=== PATIENT | female | born 1985 | race Caucasian/White ===

== ENCOUNTER 2018-09-03 13:09 | Day surgery (SDC) | payer OTHER ==
[2018-09-03] MEDS ORDERED: LACTATED RINGER'S 1,000 ML IV (14:00)
[2018-09-03] MEDS ORDERED: BUPIVACAINE 0.5% (SDV) 30 ML INJ (14:21)
[2018-09-03] MEDS ORDERED: OXYCODONE/ACETAMINOPHEN (5/325) TAB PO ×2 (15:00)
[2018-09-03] MEDS ORDERED: hydrALAzine 20 MG INJ IV (15:00)
[2018-09-03] MEDS ORDERED: LABETALOL HCL 20MG INJ IV (15:00)
[2018-09-03] MEDS ORDERED: HYDROmorphONE 1 MG/5 ML IV SYRINGE IV ×3 (15:00)
[2018-09-03] MEDS ORDERED: ONDANSETRON 4 MG INJ IV (15:00)
[2018-09-03] MEDS ORDERED: KETAMINE (50 MG/ML) 10 ML VIAL (15:02)
[2018-09-03] MEDS ORDERED: PROPOFOL 20 ML (15:04)
[2018-09-03] MEDS ORDERED: FENTAnyl 50 MCG/ML VIAL (15:04)
[2018-09-03] MEDS ORDERED: LIDOCAINE 2% (SDV) 5 ML INJ (15:04)
[2018-09-03] MEDS ORDERED: ROPIVACAINE 0.5 % 30 ML VIAL (15:04)
[2018-09-03] MEDS ORDERED: MIDAZOLAM 1 MG/ML 2 ML INJ (15:04)
[2018-09-03] MEDS ORDERED: CEFAZOLIN 1 GM INJ (15:20)
[2018-09-03] MEDS ORDERED: ONDANSETRON 4 MG INJ (15:20)
[2018-09-03] MEDS ORDERED: DEXAMETHASONE 4 MG/ML 5 ML INJ (15:20)
[2018-09-03] MEDS: BUPIVACAINE 0.5% (MPF) 30 ML INJ INJ (15:44)
== END 2018-09-03 17:25 | disposition home or self-care (01) ==
LOC: SDS 13:09
DX: M77.11 Lateral epicondylitis, right elbow (principal); M25.721 Osteophyte, right elbow
CPT/HCPCS: 24110